=== PATIENT | female | born 1945 | race Caucasian/White ===

== ENCOUNTER → 2018-11-19 | Outpatient (CLI) | payer OTHER ==
--- NOTE | 2018-11-19 13:28 | PCVCIMAG ---
APPROVED REPORT Study performed: 11/19/2018 10:40:07 EXAM: Comprehensive 2D, Doppler, and color-flow Echocardiogram Patient Location: Echo lab Status: routine BSA: 1.74 HR: 68 bpmBP: 122/70 mmHg Rhythm: NSR Other Information Study Quality: Adequate Risk Factors: Cardiac Risk Factors: Hyperlipidemia Indications Dyspnea elevated calcium score 2D Dimensions IVSd: 14.18 (7-11mm) LVDd: 35.70 mm PWd: 11.49 (7-11mm) LVDs: 24.21 (25-40mm) Left Atrium: 36.98 (27-40mm) Aortic Root: 27.14 mm LV Single Plane 4CH: 46.44 % LV Single Plane 2CH: 56.32 % Biplane EF: 54.6 % Volumes Left Atrial Volume (Systole) Single Plane 4CH: 47.05 mLSingle Plane 2CH: 47.72 mL LA ESV Index: 27.00 mL/m2 Aortic Valve AoV Peak Gianluca.: 1.00 m/s AO Peak Gr.: 4.00 mmHgLVOT Max P.19 mmHg LVOT Max V: 0.74 m/s Mitral Valve E/A Ratio: 0.7 MV Decel. Time: 275.06 ms MV E Max Gianluca.: 0.48 m/s MV A Gianluca.: 0.70 m/s IVRT: 152.25 ms Pulmonary Valve PV Peak Gianluca.: 1.03 m/sPV Peak Gr.: 4.27 mmHg Pulmonary Vein P Vein S: 0.22 m/sP Vein A: 0.46 m/s P Vein D: 0.32 m/sP Vein A Dur.: 117.6 msec P Vein S/D Ratio: 0.69 Tricuspid Valve TR Peak Gianluca.: 2.35 m/s TR Peak Gr.: 22.13 mmHg Left Ventricle The left ventricle is normal size. There is normal LV segmental wall motion. Mild septal left ventricular hypertrophy. Left ventricular systolic function is normal. The left ventricular ejection fraction is within the normal range. LVEF is 50-55%. Grade I - abnormal relaxation pattern. Right Ventricle The right ventricle is normal size. The right ventricular systolic function is normal. Atria The left atrium size is normal. The right atrium size is normal. Aortic Valve The aortic valve is normal in structure. No aortic regurgitation is present. There is no aortic valvular stenosis. Mitral Valve The mitral valve is normal in structure. Trace mitral regurgitation. No evidence of mitral valve stenosis. Tricuspid Valve The tricuspid valve is normal in structure. Trace tricuspid regurgitation with PAP of 29 mmHg. Pulmonic Valve The pulmonary valve is normal in structure. There is no pulmonic valvular regurgitation. Great Vessels The aortic root is normal in size. IVC is normal in size and collapses >50% with inspiration. Pericardium There is no pericardial effusion. There is no pleural effusion. <Conclusion> The left ventricle is normal size. Left ventricular systolic function is normal. Grade I - abnormal relaxation pattern. The right ventricle is normal size. The left atrium size is normal. The aortic valve is normal in structure. Trace mitral regurgitation. Trace tricuspid regurgitation with PAP of 29 mmHg.
--- NOTE | 2018-11-19 13:45 | PCVCIMAG ---
APPROVED REPORT Imaging Protocol: Rest Tc-99m/Stress Tc-99m 1 day Study performed: 11/19/2018 12:14:39 Indication: Elevated Calcium Score, TORRES Patient Location: Out-Patient Stress Nurse: Alma Massey RN, SHARITA Bolaños Tech:Alexis RowlandBELLA Ht: 5 ft 5 in Wt: 146 lbs BSA: 1.73 m2 HR: 68 bpm BP: 148/66 mmHg BMI: 24.29 Rhythm: Sinus Rhythm, First Degree AV Block Medical History Medical History: Age,Hyperlipidemia Medications: Atorvastatin, Prilosec Allergies: No known drug allergies Pretest Chest Pain Characteristics: No chest pain Exercise History: Physically active Resting Data Rest SPECT myocardial perfusion imaging was performed in supine position 45 minutes following the intravenous injection of 11.5 mCi of Tc-99m Sestamibi. Time of rest injection: 1130 Date: 11/19/2018 Administration Route: IV Administration Site: Right Arm Exercise Stress At peak stress, the patient was injected intravenously with 29.8mCi of Tc-99m Sestamibi. Time of stress injection: 1245 Administration Route: IV Administration Site: Right Arm Patient continued to exercise for 6 minute(s). Gated Stress SPECT was performed 45 minutes after stress injection. The images were gated to evaluate regional wall motion and calculate left ventricular ejection fraction. Stress Test Details Stress Test: Exercise stress testing was performed using a Osvaldo protocol. HRMax Heart Rate (APMHR): 149 bpm Resting HR: 68 bpmTarget HR (85% APMHR): 126 bpm Max HR Achieved: 151 bpm % of APMHR: 101 Recovery HR: 77 bpm HR response to stress: Normal HR response to stress BP Resting BP: 148/66 mmHg Max BP: 168/66 mmHg Recovery BP: 159/70 mmHg BP response to stress: Normal blood pressure response to stress. ECG Resting ECG: Sinus Rhythm, 1st degree AV block Stress ECG: Sinus Tachycardia, ST-T abnormalities ST Change: Non-ischemic Arrhythmia: PVC's Recovery ECG: Sinus Rhythm, 1st degree AV block Clinical Reason for Termination: Maximal effort, Dyspnea Stress Symptoms: Dyspnea Exercise duration: 6 min 29 sec Exercise capacity: 8.90 METs Overall Exercise Capacity for Age: Good Angina Score: None Symptoms resolved during recovery. Study Quality Study: Good Study Data Post stress, the left ventricular ejection was 70%.. SSS: 0 SRS: 0 SDS: 0 TID = 0.91. Perfusion Normal left ventricular perfusion. Normal perfusion on both the stress and rest images. Wall Motion Normal left ventricular wall motion. Nuclear Conclusion ECG Findings: negative for ischemia Clinical Findings: non-diagnostic Nuclear Findings: negative for ischemia Exercise Capacity: average Left Ventricular Function: normal Risk Study: low This study is of low probability for inducible ischemia or prior infarct. Normal global and segmental LV systolic function.
== END | disposition home or self-care (01) ==
LOC: PCVCIMAG 10:38
PROVIDERS: ATTEND Internal Medicine Cardiovascular Disease
DX: R06.09 Other forms of dyspnea (principal); R93.1 Abnormal findings on diagnostic imaging of heart and coronary circulation
CPT/HCPCS: 78452; 93017; 93306; A9500